=== PATIENT | female | born 1965 | race Caucasian/White ===

== ENCOUNTER 2021-02-03 10:38 | Emergency (ER) | payer BC, SELFPAY ==
[2021-02-03 10:39] VITALS: BP 118/70; PULSE 83; RESP 14; TEMP 37.3; O2SAT 97; BMI 41.1
--- NOTE | 2021-02-03 11:23 | ECG_ITS ---
APPROVED REPORT Exam: Resting ECG HR:86 bpm ECG Measurements Heart Rate [address] 134 P 11 QRSd 86 QRS -32 QT 370 T -12 QTc 442 Conclusion Normal sinus rhythm Left axis deviation Moderate voltage criteria for LVH Late r wave progression Abnormal ECG Electronically signed by : Enrrique Tomas MD 02/03/2021 18:53:07
--- NOTE | 2021-02-03 11:28 | HMH.EDGENADL ---
ED Disposition Clinical Impression: COVID Disposition: Home, Self-Care Condition on Discharge: Good Instructions: How to Care for Someone with COVID-19 Additional Instructions: Take a baby aspirin, 81 mg enteric-coated, once a day. Follow-up with your PCP later next week. Return to emergency department for shortness of breath, chest pain, nausea/vomiting. Referrals: Bubba Elise [Primary Care Provider] - Time of Disposition: 12:01 - Critical Care Critical Care Time: No Attestation: On 02/03/21, the high probability of a clinically significant, sudden or life threatening deterioration of the following system(s) required my full and direct attention, intervention and personal management. The time I documented below is in addition to time spent performing reported procedures but includes the following listed in this critical care notation. Medical Decision Making - Medical Records Medical records reviewed: Yes: I reviewed the patient's medical records. - Arron Inquiry Pt receiving controlled substance: No Vital Signs: 02/03/21 10:39 Temperature 99.1 F Temperature Source Oral Pulse Rate [Left] 83 Respiratory Rate 14 Blood Pressure [Right Radial Artery] 118/70 Blood Pressure Mean [Right Radial Artery] 86 Blood Pressure Source [Right Radial Artery] Automatic Cuff Blood Pressure Position [Right Radial Artery] Sitting 02 Sat by Pulse Oximetry 97 Oxygen Delivery Method Room Air Orders (Tests/Meds): ORDERS Category Date Time Status XR chest portable Stat Exams 02/03/21 11:49 Taken - Radiology Data #1 Image(s): Chest Image Reviewed: Yes I reviewed the patient's radiology image Preliminary Findings: Abnormal Bilateral patchy infiltrate - ECG Data Tracing #1 I reviewed this ECG and interpreted as documented below: Normal sinus rhythm, 86 bpm, no ST elevation or depression, normal intervals, no ectopy. ECG initial impression date: 02/03/21 ECG initial impression time: 11:29 Medical Decision Narrative: 55yo F evaluated for general malaise in the setting of Covid. Patient in no acute distress on initial evaluation. Her physical exam is unremarkable. Her O2 saturation is 97%. EKG is reviewed as above. Chest x-ray is reviewed. Patient is appropriate stable for discharge home. General Adult HPI - General Stated complaint: covid +, cough, soa Time Seen by Provider: 02/03/21 11:28 Mode of Arrival: Ambulatory - History of Present Illness HPI narrative: 55yo F with past medical history of uterine cancer status post hysterectomy and chemo/radiation now in remission but without other medical history reports emergency department secondary to Covid. Patient test positive last Saturday. Her is currently admitted in [facility]. She denies fever. She reports general malaise. She denies chest pain or shortness of breath. Patient received her monoclonal antibody infusion at [facility] on Saturday. - Related Data Allergies Allergy/AdvReac Type Severity Reaction Status Date / Time No Known Allergies Allergy Verified 02/03/21 11:47 [facility] History - Hepatitis A Screen Drug use history?: No Attestation statement:: This patient has been screened for Hepatitis A risk factors. I have reviewed the patient's past medical history: Yes Medical History: Reports:: Cancer - Social History Smoking Status: Never smoker Alcohol Intake: never ROS Obtained: Yes All systems reviewed & no additional complaints Physical Exam - General General appearance: alert, in no apparent distress - Head Head exam: atraumatic - Eye Eye exam: Present: normal appearance - ENT ENT exam: Present: normal exam - Neck Neck exam: Present: normal inspection, trachea midline - Chest Chest inspection: Present: normal inspection, symmetric chest wall rise. Absent: tenderness - Respiratory Respiratory exam: Present: normal lung sounds bilaterally. Absent: respiratory distres
--- NOTE | 2021-02-03 11:49 | XR_ITS ---
PROCEDURE: XR CHEST PORTABLE CLINICAL HISTORY: covid Cough, shortness of breath COMPARISON: No exams were available for comparison FINDINGS: The cardiomediastinal silhouette and pulmonary vascularity are within normal limits. Peripheral multifocal areas of ground-glass opacification with atelectasis noted consistent with Covid19 pneumonia. No effusions or pneumothorax. No acute bony abnormalities. IMPRESSION: Multifocal pneumonia suspicious for Covid19 Dictated by: Isacc Zee MD 02/03/2021 12:49 Isacc Zee MD in [place] 02/03/2021 12:49
[2021-02-03 12:50] VITALS: BP 111/67; PULSE 78; RESP 20; TEMP 37; O2SAT 98
== END 2021-02-03 12:35 | disposition home or self-care (01) ==
PROVIDERS: Emergency Provider Family Medicine; PCP Family Medicine
DX: U07.1 COVID-19 (principal)
CPT/HCPCS: 71045; 93005; 99282

== ENCOUNTER 2022-10-11 13:07 | Emergency (ER) | payer BC, SELFPAY ==
[2022-10-11 13:39] VITALS: BP 128/69; PULSE 96; RESP 18; TEMP 37.3; O2SAT 100; BMI 39.4
--- NOTE | 2022-10-11 13:48 | CA_ITS ---
FINAL REPORT TECHNIQUE: Bilateral lower extremity venous duplex was performed with augmentation and compression. CLINICAL HISTORY: EDEMA BILATERAL LE'S, RED STREAKS ANKLES TO KNEES BILATERAL LOWER EXTREMITY X 2 DAYS FINDINGS: Proper flow is seen throughout the deep venous systems bilaterally. There is no evidence of deep venous thrombosis. IMPRESSION: No evidence of deep venous thrombosis. Reviewed, Interpreted and Dictated by Javier Lan MD Transcribed by Cheyanne Artis Authenticated and [facility]
--- NOTE | 2022-10-11 13:53 | EXP.UTC ---
Discharge Plan Disposition Patient Disposition: Home, Self-Care Condition: Good Prescriptions Prescriptions: New cephalexin 500 mg capsule 500 mg PO QID 7 Days Qty: 28 0RF fluticasone propionate [Flonase Allergy Relief] 50 mcg/actuation spray,suspension 1 - 2 spray intranasal DAILY Qty: 16 0RF Rx Instructions: administer into each nostril daily Referrals Follow up/Referrals: Julissa Ambrocio APRN [Primary Care Provider] - See instructions Activity Restrictions/Add. Instructions Additional Instructions/Restrictions: *Start antibiotic(s) immediately and be sure to take as ordered for the FULL length of time although you may be feeling better or start to see improvement in the next 24-48 hours *Monitor closely. Outlined redness so that you can monitor easier. Follow up immediately for new or worsening symptoms including but not limited to redness, swelling, streaking from site fever or chills. *Warm compress 15 minutes 3-4 times day *Never squeeze or pop these on your own. Seek immediate medical attention next time this occurs *Monitor Temp. Tylenol every 4 hours as needed and ibuprofen every 6 hours as needed (as long as your primary care doctor has told you that it is ok to take both. For fever, aches, pain. ER if no less that 101 despite Tylenol and ibuprofen ?Follow up with your family doctor/primary care physician in the next 48-72 hours if no improvement Straight to ER if any life threatening symptoms Clinical Impressions Clinical Impression: Cellulitis Qualifiers: Site of cellulitis: unspecified site Qualified Code(s): L03.90 - Cellulitis, unspecified Instructions Patient Instructions: Cellulitis, Cephalexin Discharge ED Provider: Nancy Aviles [facility] General Stated complaint: Leg pain burning w/inflammation and red streaks Mode of Arrival: Ambulatory Source of Information: Patient Limitations: No Limitations Time Seen by Provider: 10/11/22 13:53 Description of Symptoms (Recalled from Triage Doc. by RN): pt states she had cortisone injections bilaterally in her knees on 08/16 for arthritis. pt states she began having spasms in her calves leading to an ED trip to [place] where she was given benedryl. pt then states she went into her PCP who did some blood work revealing inflammation. during this time the pt had been taking muscle relaxers. yesterday the pt started a new arthritic med, unsure which one. Last night pt reports she had edema, burning/tingling, and redstreaks from her ankles to her knees bilaterally. today pt c/o tingling in both knees. pts PCP reportedly told her to come in and get everything checked out. States that she has been having spasm like pain in the back of her calves and her PCP give her some muscle relaxers and it did help some HEENT Symptoms (Recalled from RN notes): No Resp Symptoms (Recalled from RN notes): No Skin Symptoms (Recalled from RN notes): No MS Symptoms (Recalled from RN notes): Yes Functional Status (Recalled from RN notes): wnl History of Present Illness Provider Complaint: Patient states that she had cortisone shots in both knees on 08/16 and since then she has been having issues with her legs States that she has been to the ED and seen her PCP that did blood work and all of it was good except she had some inflammatory markers in her blood according to her PCP and they started her on Arthritis medication States that she took one on Saturday and since has been having pins and needle type feeling in bilateral lower extremities like her nerves is tingling States that she notice last night looked like the area around her ankles was getting red and looked like little streaks States that today the streaks are gone but still having redness around her left ankle and feels a little warm to touch States she called her PCP office today and her PCP was out and they told her to come in and get it looked out concerned for skin infection Related Data Previous Rx's Medication Instructions R
[2022-10-11 14:31] VITALS: BP 128/69; PULSE 96; RESP 18; TEMP 37.3
== END 2022-10-11 14:42 | disposition home or self-care (01) ==
PROVIDERS: Emergency Provider Nurse Practitioner; PCP Nurse Practitioner Family
DX: L03.90 Cellulitis, unspecified (principal); R22.43 Localized swelling, mass and lump, lower limb, bilateral; T88.7XXA Unspecified adverse effect of drug or medicament, initial encounter
CPT/HCPCS: 93970; 99204; 99212; G0463